=== PATIENT | female | born 1970 | race African-American/Black ===

== ENCOUNTER 2021-12-25 14:30 | Outpatient (RCR) | payer OTHER, SELFPAY | END 2022-02-17 11:12 | disposition home or self-care (01) | LOC: ANHDMC 14:30 | PROVIDERS: PCP Hospitalist; Visit Provider Internal Medicine Endocrinology, Diabetes & Metabolism | DX: E11.65 Type 2 diabetes mellitus with hyperglycemia (principal); Z71.89 Other specified counseling; Z71.3 Dietary counseling and surveillance | CPT/HCPCS: 99199; G0108; G0109 ==

== ENCOUNTER 2023-05-03 02:26 | Emergency (ER) | payer OTHER, SELFPAY ==
[2023-05-03 02:31] VITALS: BP 169/84; PULSE 95; RESP 15; TEMP 37.2; O2SAT 99
[2023-05-03] MEDS: CLINDAMYCIN 600 MG/D5W 50 ML 600 MG/50 ML PIGGYBACK 100 MG IVPB (03:07)
[2023-05-03] MEDS: MORPHINE SULFATE (*CRX) 4 MG/ML INJ IV PUSH (03:08)
[2023-05-03 03:16] LABS: Basophils Percent Auto 0.6 % (0.2-1.2); Eosinophils Absolute Auto 0.1 K/mm3 (0-0.3); Eosinophils Percent Auto 0.9 % (0-4.4); Hematocrit 37.8 % (37.0-47.0); Hemoglobin 11.7 g/dL (12.0-15.0); Immature Granulocyte Absolute 0.01 K/mm3 (0.00-0.031); Immature Granulocyte Percent A 0.2 % (0-0.5); Lymphocytes Absolute Auto 1.56 K/mm3 (0.9-3.2); Lymphocytes Percent Auto 23.5 % (18.3-44.2); Mean Corpuscular Hemoglobin 26.4 pg (26-34); Mean Corpuscular Volume 85.3 fl (80-100); Mean Platelet Volume 11.8 fl (7.4-10.4); Monocytes Absolute Auto 0.4 K/mm3 (0.1-0.6); Monocytes Percent Auto 6.6 % (2.6-8.5); Neutrophils Absolute Auto 4.5 K/mm3 (1.3-6.7); Neutrophils Percent Auto 68.2 % (45.5-73.1); Platelet Count Result 202 k/mm3 (150-375); Red Blood Count 4.43 M/mm3 (4.2-5.4); Red Cell Distribution Width 17.4 % (11.5-14.5); White Blood Count 6.6 K/mm3 (4.5-10.0)
--- NOTE | 2023-05-03 03:26 | ED.GENADULT ---
HPI - General Adult General Chief complaint: Dental/Oral Stated complaint: facial swelling, dental pain Time Seen by Provider: 05/03/23 02:46 History of Present Illness HPI narrative: patient is a 53-year-old female who presents emergency department with chief complaint of dental pain and facial swelling patient reports that she had some dental work done earlier this week and had some the temporary crown placed patient reports that she started having pain and swelling in her mandible reports that there is no drainage of her neck denies trismus patient reports the area is painful and reports she has not been on antibiotics since the procedure and denies being on pain medications. Related Data Allergies Allergy/AdvReac Type Severity Reaction Status Date / Time Penicillins Allergy Itching Verified 05/03/23 02:38 Review of Systems Review of Systems: A 10 system review of systems was completed on the patient and is negative except for what is stated in the HPI. Nursing and ancillary documentation was reviewed. Exam Narrative: GENERAL: Well-appearing, well-nourished, and in no acute distress. HEAD: Normocephalic, atraumatic. EYES: PERRLA and EOMI. ENT: Nares clear, no rhinorrhea or epistaxis. Mucous membranes moist. There is tenderness and swelling of the left lower mandible there is no crepitance or fluctuance there is no necrotic tissue there is no trismus NECK: Supple. CHEST: Clear to auscultation. No respiratory distress. HEART: Regular rate and rhythm. No murmur heard. Normal peripheral pulses. ABDOMEN: Soft, nontender, nondistended, normal active bowel sounds. EXTREMITIES: Normal range of motion. No edema. SKIN: Warm, dry, no rash. NEURO: No focal deficits. Alert and oriented x3. PSYCH: Normal mood and affect. Course Vital Signs Vital signs: Vital Signs Temperature 37.2 C 05/03/23 02:31 Pulse Rate 95 05/03/23 02:31 Respiratory Rate 15 05/03/23 02:31 Blood Pressure 169/84 H 05/03/23 02:31 Pulse Oximetry 99 05/03/23 02:31 Oxygen Delivery Room Air 05/03/23 02:31 Temperature 37.2 C 05/03/23 02:31 Pulse Rate 95 05/03/23 02:31 Respiratory Rate 15 05/03/23 02:31 Blood Pressure 169/84 H 05/03/23 02:31 Pulse Oximetry 99 1217/23 02:31 Oxygen Delivery Room Air 05/03/23 02:31 Medical Decision Making Vital Signs Vital Signs: Vital Signs Temperature 37.2 C 05/03/23 02:31 Pulse Rate 95 05/03/23 02:31 Respiratory Rate 15 05/03/23 02:31 Blood Pressure 169/84 H 05/03/23 02:31 Pulse Oximetry 99 05/03/23 02:31 Oxygen Delivery Room Air 05/03/23 02:31 Temperature 37.2 C 05/03/23 02:31 Pulse Rate 95 05/03/23 02:31 Respiratory Rate 15 05/03/23 02:31 Blood Pressure 169/84 H 05/03/23 02:31 Pulse Oximetry 99 05/03/23 02:31 Oxygen Delivery Room Air 05/03/23 02:31 Lab Data 05/03/23 03:08 05/03/23 03:08 Labs: Lab Results 05/03/23 Range/Units 03:08 WBC 6.6 (4.5-10.0) K/mm3 RBC 4.43 (4.2-5.4) M/mm3 Hgb 11.7 L (12.0-15.0) g/dL Hct 37.8 (37.0-47.0) % MCV 85.3 (80-100) fl MCH 26.4 (26-34) pg MCHC 31.0 L (32-36) g/dl RDW 17.4 H (11.5-14.5) % Plt Count 202 (150-375) k/mm3 MPV 11.8 H (7.4-10.4) fl Immature Gran % (Auto) 0.2 (0-0.5) % Neut % (Auto) 68.2 (45.5-73.1) % Lymph % (Auto) 23.5 (18.3-44.2) % [place] % (Auto) 6.6 (2.6-8.5) % Eos % (Auto) 0.9 (0-4.4) % Baso % (Auto) 0.6 (0.2-1.2) % Lymph # (Auto) 1.56 (0.9-3.2) K/mm3 [place] # (Auto) 0.4 (0.1-0.6) K/mm3 Eos # (Auto) 0.1 (0-0.3) K/mm3 Baso # (Auto) 0.0 (0.0-0.1) K/mm3 Abs Immat Gran (auto) 0.01 (0.00-0.031) K/mm3 Absolute Neuts (auto) 4.5 (1.3-6.7) K/mm3 Absolute Nucleated RBC 0.0 (0.0-0.012) K/mm3 Nucleated RBC % 0.0 (0.0-0.2) % Sodium 142 (137-145) mmol/L Potassium 3.7 (3.4-5.0) mmol/L Chloride 106 (98-107) mmol/L Carbon Dioxide 24 (22-30) mmol/L Anio
[2023-05-03 03:27] LABS: Alanine Aminotransferase 18 U/L (6-35); Albumin Level 4.4 g/dL (3.5-5.1); Alkaline Phosphatase 123 U/L (38-126); Anion Gap 12 mmol/L (8-16); Aspartate Amino Transferase 25 U/L (14-36); Bilirubin,Total 0.5 mg/dL (0.2-1.3); Blood Urea Nitrogen 17 mg/dL (7-17); Calcium 9.6 mg/dL (8.4-10.2); Carbon Dioxide 24 mmol/L (22-30); Chloride 106 mmol/L (98-107); Estimated CRCL calculation 83 ml/min; Estimated Glomerular Filt Rate > 60; Glucose 173 mg/dL (65-110); Potassium 3.7 mmol/L (3.4-5.0); Sodium 142 mmol/L (137-145)
[2023-05-03 04:03] VITALS: BP 158/77; PULSE 82; RESP 20; O2SAT 99
== END 2023-05-03 04:06 | disposition home or self-care (01) ==
PROVIDERS: Emergency Provider Emergency Medicine; PCP Hospitalist
DX: K04.7 Periapical abscess without sinus (principal)
CPT/HCPCS: 36415; 80053; 85025; 96365; 96375; 99284; J2270

== ENCOUNTER 2024-05-09 17:14 | Emergency (ER) | payer OTHER, SELFPAY ==
--- NOTE | ~2024-05-09 | XR_ITS ---
EXAM: XR hand LT min 3V DATE: 05/09/2024 17:42 HISTORY: L hand swelling, pain mainly in 2nd digit . COMPARISON: None available. FINDINGS: Normal mineralization. No fracture or dislocation. No lytic or blastic lesion. Scattered d egenerative changes including at the DRUJ. No erosion or periosteal change. Soft tissue swelling over the dorsum of the hand and also likely at the proximal second digit. IMPRESSION: No acute osseous finding in the left hand. Reviewed, dictated and finalized at location K. STR[facility] ANALYST
[2024-05-09 17:20] VITALS: BP 174/81; PULSE 87; RESP 20; TEMP 36.2; O2SAT 98
--- NOTE | 2024-05-09 17:30 | ED.UPPEXIN ---
HPI - Extremity Injury (Upper) General Chief Complaint: Extremity Injury, Upper Stated Complaint: left hand pain Time Seen by Provider: 05/09/24 17:20 Focused HPI: Patient is a 54-year-old female who presents to the with complaints of L PIP joint swelling. she reports the pain and swelling started 2 days ago. Patient endorses FROM in her left wrist. Her 3rd, 4th and 5th digits also have full range of motion. She endorses decreased motion in her 2nd left digit, and both the PIP and DIP joint. Patient endorses history of gout, diabetes, high blood pressure, and a defibrillator. She denies any recent fevers, signs/symptoms of infection, injury to the site. GENERAL: Well-appearing, well-nourished, and in no acute distress. HEAD: Normocephalic, atraumatic. CHEST: Clear to auscultation. ?No respiratory distress. HEART: Regular rate and rhythm.? NEURO: ?Alert and oriented x3. Patient screened in triage and initial orders placed.? ?Additional care and disposition to be based upon?diagnostic testing and treatment. Related Data Allergies Allergy/AdvReac Type Severity Reaction Status Date / Time Penicillins Allergy Itching Verified 05/03/23 02:38 Course Vital Signs Vital signs: Vital Signs Temperature 36.2 C L 05/09/24 17:20 Pulse Rate 87 05/09/24 17:20 Respiratory Rate 20 05/09/24 17:20 Blood Pressure 174/81 H 05/09/24 17:20 Pulse Oximetry 98 05/09/24 17:20 Oxygen Delivery Room Air 05/09/24 17:20 Temperature 36.2 C L 05/09/24 17:20 Pulse Rate 87 05/09/24 17:20 Respiratory Rate 20 05/09/24 17:20 Blood Pressure 174/81 H 05/09/24 17:20 Pulse Oximetry 98 05/09/24 17:20 Oxygen Delivery Room Air 05/09/24 17:20 Discharge Plan Discharge Patient Language: Ethiopian Prescriptions: No Action hydrocodone-acetaminophen 5-325 mg tablet 1 tablet PO Q6H PRN (Reason: pain) 3 Days Qty: 12 0RF clindamycin HCl 300 mg capsule 300 mg PO Q6H 10 Days Qty: 40 0RF Follow-up/Referrals: Adan,Daniella Jackson MD [Primary Care Provider] -
[2024-05-09 19:24] VITALS: BP 180/96; PULSE 85; RESP 18; TEMP 36.3; O2SAT 97
--- NOTE | 2024-05-09 20:45 | PC.NURSE ---
Pt walks up to triage desk and states she is leaving to go home and take pain meds. Pt states she will wait for x-ray results at home. Pt was given portal pamphlet prior to leaving. Pt left without being seen by jocelyn.
== END 2024-05-09 20:46 | disposition left against medical advice (07) ==
PROVIDERS: Emergency Provider Registered Nurse; PCP Hospitalist
DX: M10.9 Gout, unspecified (principal)
CPT/HCPCS: 73130; 99283